=== PATIENT | female | born 1975 | race Caucasian/White ===

== ENCOUNTER 2024-07-28 05:25 | Day surgery (SDC) | payer OTHER ==
[~2024-07-28] VITALS: Ht 157.5 cm; Wt 113.2 kg
[~2024-07-28 05:25] MED LIST: Ondansetron 4 MG/2 ML VIAL IV PRN
[2024-07-28 05:48] VITALS: BP 131/87; PULSE 74; TEMP 96
[2024-07-28] MEDS ORDERED: LR 1,000 ML IV SCH (06:00)
[2024-07-28] MEDS ORDERED: PRINIVIL10 MG PO (06:07)
[2024-07-28] MEDS ORDERED: VITAMIN D31000 I1 PO (06:08)
[2024-07-28] MEDS ORDERED: ZYRTEC 10MG10 MG PO (06:08)
--- NOTE | 2024-07-28 06:21 | NUR ---
Patient admitted to [facility] bay 1. Admission assessments complete. Pt reports that bowel prep has been effective. VSS. Medications, allergies, and pharmacy confirmed. at bedside. 20G IV inserted into right hand, LR infusing as ordered. Pt oriented to room and call light. Warm blanket provided. Glasses on. Consent signed. Call light within reach.
[2024-07-28 07:50] VITALS: BP 121/69; PULSE 60; TEMP 96.9
[2024-07-28 08:05] VITALS: BP 125/74; PULSE 60
[2024-07-28 08:15] VITALS: BP 130/60; PULSE 60
--- NOTE | 2024-07-28 08:20 | NUR ---
0750 RETURNS TO ROOM 1 PER CART. AWAKE, ALERT. RESP UNLABORED. AMBULATES TO RECLINER WITH STANDBY ASSIST. DENIES NAUSEA OR ABD PAIN. VITAL SIGNS OBTAINED. CALL LIGHT IN REACH. SIGNIFICANT OTHER HERE 0800 T[address] PO SODA AND MUFFIN WITHOUT NAUSEA. DISCHARGE INSTRUCTIONS REVIEWED. PATIENT VERBALIZES UNDERSTANDING. COPY PROVIDED IN DISCHARGE FOLDER. 0876 DR MILTON HERE TO VISIT WITH PATIENT
== END 2024-07-28 08:20 | disposition home or self-care (01) ==
LOC: SDCO 05:25
DX: Z12.11 Encounter for screening for malignant neoplasm of colon (principal); D12.3 Benign neoplasm of transverse colon; D17.5 Benign lipomatous neoplasm of intra-abdominal organs; I10 Essential (primary) hypertension; Z79.899 Other long term (current) drug therapy; Z87.891 Personal history of nicotine dependence; Z86.0102 Personal history of hyperplastic colon polyps; Z83.719 Family history of colon polyps, unspecified
CPT/HCPCS: J2704; J7120